=== PATIENT | female | born 1950 | race African-American/Black ===

== ENCOUNTER 2017-04-03 16:32 | Emergency (ER) | payer MEDICARE, OTHER ==
[~2017-04-03] VITALS: Ht 170.2 cm; Wt 81.8 kg
[~2017-04-03 16:32] MED LIST: ASPI-1093 PO; GLIM2 PO; LISI1TAB11 PO; MELO15TA12 PO; METF850T2 PO; SIMV-260 PO; SITA100 PO
[2017-04-03 16:47] LABS: GLUCOSE,POINT OF CARE 106 MG/DL (70-110)
[2017-04-03] MEDS ORDERED: HYDROCODONE/ACETAMINOPHEN 5-325 MG TABLET PO ONE (18:30)
[2017-04-03 19:00] VITALS: BP 145/86
== END 2017-04-03 19:42 | disposition home or self-care (01) ==
LOC: EMS 16:34
DX: M79.631 Pain in right forearm (principal); E11.9 Type 2 diabetes mellitus without complications; I10 Essential (primary) hypertension; E78.00 Pure hypercholesterolemia, unspecified; Z79.82 Long term (current) use of aspirin
CPT/HCPCS: 82962; 99283

== ENCOUNTER 2018-08-30 11:05 | Emergency (ER) | payer OTHER ==
[~2018-08-30] VITALS: Ht 170.2 cm; Wt 81.5 kg
[~2018-08-30 11:05] MED LIST changes: -ASPI-1093 PO; +ASPI-1182 PO; +METF-445 PO; -METF850T2 PO
[2018-08-30 11:19] LABS: GLUCOSE,POINT OF CARE 141 MG/DL (70-110)
[2018-08-30] MEDS ORDERED: LIDOCAINE/PF 1% 2 ML VIAL IM ONE (12:15)
[2018-08-30] MEDS ORDERED: CefTRIAXone SODIUM 1 GM/VIAL IM ONE (12:15)
[2018-08-30 13:38] LABS: APPEARANCE,URINE CLOUDY (CLEAR); BILIRUBIN,URINE NEGATIVE (NEGATIVE); GLUCOSE, URINE (UA) NEGATIVE (NEGATIVE); KETONES,URINE TRACE mg/dL (NEGATIVE); LEUKOCYTE ESTERASE ,URINE SMALL (NEGATIVE); NITRATE,URINE NEGATIVE (NEGATIVE); OCCULT BLOOD,URINE NEGATIVE (NEGATIVE); PROTEIN,URINE TRACE (NEGATIVE); UROBILINOGEN,URINE 0.2 mg/dL (<=1.0)
[2018-08-30 13:51] LABS: BACTERIA,URINE Moderate /HPF (None Seen); RBC,URINE 0-2 /HPF (0-2); SQUAMOUS EPITHELIAL CELL,UR Few /LPF (None Seen)
[2018-08-30 14:21] VITALS: BP 135/88
== END 2018-08-30 14:21 | disposition home or self-care (01) ==
LOC: EMS 11:09
DX: N34.2 Other urethritis (principal); I10 Essential (primary) hypertension; E11.9 Type 2 diabetes mellitus without complications; E78.00 Pure hypercholesterolemia, unspecified; Z79.899 Other long term (current) drug therapy; Z79.82 Long term (current) use of aspirin
CPT/HCPCS: 81001; 82962; 87086; 96372; 99284; J0696; J3490

== ENCOUNTER 2019-11-15 13:36 | Emergency (ER) | payer OTHER ==
[~2019-11-15] VITALS: Ht 170.2 cm; Wt 81.8 kg
[~2019-11-15 13:36] MED LIST changes: +ASPI-1111 PO; -ASPI-1182 PO
[2019-11-15 13:53] LABS: GLUCOSE,POINT OF CARE 346 MG/DL (70-110)
[2019-11-15 15:23] LABS: APPEARANCE,URINE CLOUDY (CLEAR); BILIRUBIN,URINE NEGATIVE (NEGATIVE); GLUCOSE, URINE (UA) >=1000 mg/dL (NEGATIVE); KETONES,URINE NEGATIVE (NEGATIVE); LEUKOCYTE ESTERASE ,URINE MODERATE (NEGATIVE); NITRATE,URINE NEGATIVE (NEGATIVE); OCCULT BLOOD,URINE NEGATIVE (NEGATIVE); PROTEIN,URINE NEGATIVE (NEGATIVE); UROBILINOGEN,URINE 0.2 mg/dL (<=1.0)
[2019-11-15 15:28] LABS: BACTERIA,URINE Moderate /HPF (None Seen); RBC,URINE 0-2 /HPF (0-2); SQUAMOUS EPITHELIAL CELL,UR Many /LPF (None Seen)
[2019-11-15] MEDS ORDERED: CefTRIAXone SODIUM 1 GM/VIAL IM ONE (16:15)
[2019-11-15] MEDS ORDERED: AZITHROMYCIN 250 MG TABLET PO ONE (16:15)
[2019-11-15 16:33] VITALS: BP 147/85
== END 2019-11-15 16:34 | disposition home or self-care (01) ==
LOC: EMS 13:39
DX: N34.2 Other urethritis (principal); E11.65 Type 2 diabetes mellitus with hyperglycemia; E78.00 Pure hypercholesterolemia, unspecified; I10 Essential (primary) hypertension; Z98.890 Other specified postprocedural states; Z79.899 Other long term (current) drug therapy; Z79.84 Long term (current) use of oral hypoglycemic drugs; Z79.82 Long term (current) use of aspirin
CPT/HCPCS: 81001; 82962; 87077; 87086; 96372; 99283; J0696

== ENCOUNTER 2022-02-15 15:22 | Emergency (ER) | payer OTHER ==
[~2022-02-15] VITALS: Ht 170.2 cm; Wt 81.8 kg
[~2022-02-15 15:22] MED LIST changes: -ASPI-1111 PO; +ASPI-1444 PO
[2022-02-15] MEDS ORDERED: HYDROCODONE/ACETAMINOPHEN 5-325 MG TABLET PO ONE (16:30)
[2022-02-15 16:49] LABS: BASOPHILS % (AUTO) 0.4 % (0.0-2.0); EOSINOPHILS % (AUTO) 0.5 % (1.0-6.0); HEMATOCRIT 37.7 % (36-46); HEMOGLOBIN 12.2 g/dL (12.0-16.0); LYMPHOCYTES # (AUTO) 3.2 K/uL (1.0-4.8); LYMPHOCYTES % (AUTO) 47.2 % (22.0-44.0); MEAN CORPUSCULAR HEMOGLOBIN 26.5 pg (26.0-34.0); MEAN CORPUSCULAR HGB CONC 32.4 G/dL (31.0-37.0); MEAN CORPUSCULAR VOLUME 82 fL (80-100); MONOCYTES # (AUTO) 0.5 K/uL (0.1-1.0); NEUTROPHILS # (AUTO) 3.1 K/uL (1.8-7.7); NEUTROPHILS % (AUTO) 44.9 % (40.0-70.0); PLATELET COUNT (AUTO) 239 K/uL (150-450); RED BLOOD CELL COUNT(AUTO) 4.61 MIL/uL (4.00-5.20); RED CELL DISTRIBUTION WIDTH 14.9 % (11.5-14.5)
[2022-02-15 17:04] LABS: CALCIUM, TOTAL 9.3 mg/dL (8.8-10.5); CREATININE 1.11 mg/dL (0.60-1.30); POTASSIUM 3.7 mmol/L (3.5-5.1)
[2022-02-15 17:10] LABS: ALBUMIN 3.2 g/dL (3.4-5.0); BILIRUBIN,TOTAL 0.2 mg/dL (0.1-1.0); TOTAL PROTEIN, SERUM 8.5 g/dL (6.4-8.2)
[2022-02-15] MEDS ORDERED: IOHEXOL 350 MG/ML 100 ML VIAL ONE (18:09)
[2022-02-15] MEDS ORDERED: SODIUM CHLORIDE 0.9% 100 ML ONE (18:09)
[2022-02-15 19:30] VITALS: BP 141/74
[2022-02-15] MEDS ORDERED: CYCL-448 PO (19:46)
== END 2022-02-15 20:09 | disposition home or self-care (01) ==
LOC: EMS 15:42
DX: S29.012A Strain of muscle and tendon of back wall of thorax, initial encounter (principal); E11.9 Type 2 diabetes mellitus without complications; E78.00 Pure hypercholesterolemia, unspecified; I10 Essential (primary) hypertension; Z79.84 Long term (current) use of oral hypoglycemic drugs; Z79.82 Long term (current) use of aspirin; X58.XXXA Exposure to other specified factors, initial encounter; Y93.89 Activity, other specified; Y92.89 Other specified places as the place of occurrence of the external cause; Y99.8 Other external cause status
CPT/HCPCS: 36415; 71046; 71275; 80053; 85025; 85379; 93005; 99285; J7050; Q9967

== ENCOUNTER 2023-02-16 12:35 | Emergency (ER) | payer OTHER ==
[~2023-02-16] VITALS: Ht 170.2 cm; Wt 81.8 kg
[~2023-02-16 12:35] MED LIST changes: +CYCL-448 PO
[2023-02-16] MEDS ORDERED: GABA-1181 PO (12:41)
[2023-02-16] MEDS ORDERED: ATOR20TA65 PO (12:41)
[2023-02-16] MEDS ORDERED: EMPA10TA3 PO (12:41)
[2023-02-16] MEDS ORDERED: AMLO5TAB66 PO (12:41)
[2023-02-16] MEDS ORDERED: ASPI-1450 PO (12:41)
[2023-02-16] MEDS ORDERED: LOSA1TAB37 PO (12:41)
[2023-02-16] MEDS ORDERED: GABA-533 PO (12:41)
[2023-02-16 12:47] VITALS: BP 126/64
[2023-02-16] MEDS ORDERED: DOXY-354 PO (12:56)
[2023-02-16] MEDS ORDERED: ACET-3385 PO (12:56)
[2023-02-16] MEDS ORDERED: DOXYCYCLINE HYCLATE 100 MG TABLET PO ONE (13:00)
[2023-02-16] MEDS ORDERED: ACETAMINOPHEN 500 MG TABLET PO ONE (13:00)
== END 2023-02-16 13:18 | disposition home or self-care (01) ==
LOC: EMS 12:45
DX: L02.411 Cutaneous abscess of right axilla (principal); E11.9 Type 2 diabetes mellitus without complications; E78.00 Pure hypercholesterolemia, unspecified; I10 Essential (primary) hypertension; M10.9 Gout, unspecified
CPT/HCPCS: 99283

== ENCOUNTER 2023-07-09 16:04 | Emergency (ER) | payer OTHER ==
[~2023-07-09] VITALS: Ht 170.2 cm; Wt 75.0 kg
[~2023-07-09 16:04] MED LIST changes: +ACET-3385 PO; +AMLO5TAB66 PO; -ASPI-1444 PO; +ASPI-1450 PO; +ATOR20TA65 PO; -CYCL-448 PO; +DOXY-354 PO; +EMPA10TA3 PO; +GABA-534 PO; -GLIM2 PO; -LISI1TAB11 PO; +LOSA1TAB37 PO; -MELO15TA12 PO; -SIMV-260 PO; -SITA100 PO
[2023-07-09 16:13] VITALS: TEMP 98.5
[2023-07-09] MEDS ORDERED: SODIUM CHLORIDE 0.9% 1,000 ML IV ONE (16:30)
[2023-07-09] MEDS ORDERED: HYDROmorphone HCL 2 MG/ML SYRINGE IVP ONE (16:30)
[2023-07-09] MEDS ORDERED: ONDANSETRON HCL 4 MG/2 ML VIAL IVP ONE (16:30)
[2023-07-09] MEDS ORDERED: SITA100 PO (16:35)
[2023-07-09] MEDS ORDERED: METF-446 PO (16:35)
[2023-07-09] MEDS ORDERED: DULA0.75 SQ (16:35)
[2023-07-09 17:24] LABS: BASOPHILS % (AUTO) 0.2 % (0.0-2.0); EOSINOPHILS % (AUTO) 0.6 % (1.0-6.0); HEMATOCRIT 37.2 % (36-46); HEMOGLOBIN 11.8 g/dL (12.0-16.0); LYMPHOCYTES % (AUTO) 39.3 % (22.0-44.0); MEAN CORPUSCULAR HEMOGLOBIN 26.2 pg (26.0-34.0); MEAN CORPUSCULAR HGB CONC 31.6 G/dL (31.0-37.0); MEAN CORPUSCULAR VOLUME 83 fL (80-100); MONOCYTES # (AUTO) 0.6 K/uL (0.1-1.0); MONOCYTES % (AUTO) 8.2 % (2.0-9.0); NEUTROPHILS # (AUTO) 3.9 K/uL (1.8-7.7); NEUTROPHILS % (AUTO) 51.7 % (40.0-70.0); PLATELET COUNT (AUTO) 221 K/uL (150-450); RED BLOOD CELL COUNT(AUTO) 4.48 MIL/uL (4.00-5.20); RED CELL DISTRIBUTION WIDTH 15.1 % (11.5-14.5); WHITE BLOOD COUNT (AUTO) 7.5 K/uL (4.5-11.0)
[2023-07-09 17:36] LABS: ANION GAP 7 mmol/L (8-16); CALCIUM, TOTAL 8.7 mg/dL (8.8-10.5); CARBON DIOXIDE 28 mmol/L (22-29); CHLORIDE 104 mmol/L (98-107); CREATININE 0.86 mg/dL (0.60-1.30); GLOMERULAR FILTR. RATE CALC > 60 mL/min (>60); GLUCOSE,RANDOM 148 mg/dL (70-110); POTASSIUM 3.4 mmol/L (3.5-5.1); SODIUM SERUM 139 mmol/L (136-145); UREA NITROGEN, BLOOD 11 mg/dL (7-18)
[2023-07-09 17:44] LABS: LACTIC ACID 0.7 mmol/L (0.4-2.0)
[2023-07-09 17:46] LABS: ALCOHOL, BLOOD (SERUM) < 3 mg/dL (0-10)
[2023-07-09 17:56] VITALS: BP 179/96; PULSE 88; RESP 19
[2023-07-09 18:01] LABS: ALANINE AMINOTRANSFERASE 12 U/L (12-78); ALBUMIN 2.9 g/dL (3.4-5.0); ALKALINE PHOSPHATASE 108 U/L (46-116); ASPARTATE AMINOTRANSFERASE 14 U/L (15-37); BILIRUBIN,TOTAL 0.3 mg/dL (0.1-1.0); CREATINE KINASE, TOTAL ONLY 77 U/L (26-192); LIPASE 25 U/L (16-77); TOTAL PROTEIN, SERUM 7.6 g/dL (6.4-8.2)
[2023-07-09 18:04] LABS: TROPONIN I-HIGH SENSITIVITY 6 ng/L (<51)
[2023-07-09] MEDS ORDERED: ACET-2080 PO (18:17)
== END 2023-07-09 18:51 | disposition home or self-care (01) ==
LOC: EMS 16:04
DX: R51.9 Headache, unspecified (principal); E11.9 Type 2 diabetes mellitus without complications; E78.00 Pure hypercholesterolemia, unspecified; I10 Essential (primary) hypertension; M10.9 Gout, unspecified
CPT/HCPCS: 99285; 96374; 70450; 71045; 96361; 96375; 80053; 82550; 83605; 83690; 84484; 85025; 36415; 93005; G0480; J1170; J2405; J7030

== ENCOUNTER 2023-10-25 12:27 | Emergency (ER) | payer OTHER ==
[~2023-10-25] VITALS: Ht 170.2 cm; Wt 77.3 kg
[~2023-10-25 12:27] MED LIST changes: +ACET-2080 PO; -DOXY-354 PO; +DULA0.75 SQ; -METF-445 PO; +METF-446 PO; +SITA100 PO
[2023-10-25 12:35] VITALS: TEMP 97.7
[2023-10-25] MEDS ORDERED: DULA1.5P SQ (12:35)
[2023-10-25 13:14] LABS: APPEARANCE,URINE CLEAR (CLEAR); BILIRUBIN,URINE NEGATIVE (NEGATIVE); COLOR,URINE LIGHT YELLOW (YELLOW); GLUCOSE, URINE (UA) NEGATIVE (NEGATIVE); KETONES,URINE NEGATIVE (NEGATIVE); LEUKOCYTE ESTERASE ,URINE MODERATE (NEGATIVE); NITRATE,URINE NEGATIVE (NEGATIVE); OCCULT BLOOD,URINE NEGATIVE (NEGATIVE); PH,URINE 5.5 (5.0-8.0); PROTEIN,URINE TRACE mg/dL (NEGATIVE); SPECIFIC GRAVITIY, URINE 1.024 (1.003-1.030); UROBILINOGEN,URINE <=1.0 mg/dL (<=1.0)
[2023-10-25] MEDS ORDERED: CefTRIAXone SODIUM 1 GM/VIAL IM ONE (13:30)
[2023-10-25] MEDS ORDERED: DOXYCYCLINE HYCLATE 100 MG TABLET PO ONE (13:30)
[2023-10-25] MEDS ORDERED: LIDOCAINE/PF 1% 2 ML VIAL IM ONE (13:30)
[2023-10-25] MEDS ORDERED: PHENAZOPYRIDINE HCL 100 MG TABLET PO ONE (13:30)
[2023-10-25 14:16] LABS: BACTERIA,URINE Moderate /HPF (None Seen); RBC,URINE 0-2 /HPF (0-2); SQUAMOUS EPITHELIAL CELL,UR Few /LPF (None Seen)
[2023-10-25] MEDS ORDERED: CEPH-558 PO (14:18)
[2023-10-25] MEDS ORDERED: PHEN-674 PO (14:18)
[2023-10-25] MEDS ORDERED: DOXY-354 PO (14:18)
[2023-10-25] MEDS ORDERED: MICO45CR16 VG (14:18)
[2023-10-25 14:34] VITALS: BP 148/83; PULSE 82; RESP 16
== END 2023-10-25 15:31 | disposition home or self-care (01) ==
LOC: EMS 13:17
DX: N39.0 Urinary tract infection, site not specified (principal); E11.9 Type 2 diabetes mellitus without complications; I10 Essential (primary) hypertension; M10.9 Gout, unspecified
CPT/HCPCS: 99283; 81001; 87086; 87186; 96372; J0696; J3490

== ENCOUNTER 2025-04-15 20:41 | Emergency (ER) | payer OTHER ==
[~2025-04-15] VITALS: Ht 170.2 cm; Wt 76.4 kg
[~2025-04-15 20:41] MED LIST changes: -ACET-2080 PO; -ACET-3385 PO; +CEPH-558 PO; +DOXY-354 PO; -DULA0.75 SQ; +DULA1.5P SQ; +MICO45CR16 VG; +PHEN-674 PO
[2025-04-15 21:04] VITALS: TEMP 98.1
[2025-04-15] MEDS: IBUPROFEN 400 MG TABLET PO ONE (22:50)
[2025-04-15] MEDS: ACETAMINOPHEN 500 MG TABLET PO ONE (22:50)
[2025-04-15 23:34] VITALS: BP 148/72; PULSE 95; RESP 17; O2SAT 99
[2025-04-16] MEDS: KETOROLAC TROMETHAMINE 15 MG/ML VIAL IM ONE (01:07)
[2025-04-16] MEDS ORDERED: KETOROLAC TROMETHAMINE 30 MG/ML VIAL IM ONE (01:15)
== END 2025-04-16 01:21 | disposition home or self-care (01) ==
LOC: EMS 20:42
DX: M25.572 Pain in left ankle and joints of left foot (principal); E11.9 Type 2 diabetes mellitus without complications; I10 Essential (primary) hypertension; M19.90 Unspecified osteoarthritis, unspecified site; M10.00 Idiopathic gout, unspecified site; Z98.890 Other specified postprocedural states; Z79.899 Other long term (current) drug therapy; Z79.82 Long term (current) use of aspirin
CPT/HCPCS: 99283; 73610; 96372; J1885